=== PATIENT | female | born 1950 | race Caucasian/White ===

== ENCOUNTER → 2019-03-18 | Outpatient (CLI) | payer MEDICARE ==
--- NOTE | 2019-03-19 10:40 | MM ---
Reason for exam: screening (asymptomatic). Last mammogram was performed 2 years and 5 months ago. History: Patient is postmenopausal. Physical Findings: A clinical breast exam by your physician is recommended on an annual basis and results should be correlated with mammographic findings. MG Screening Mammo w CAD Bilateral CC and MLO view(s) were taken. Prior study comparison: October 07, 2016, bilateral MG screening mammo w CAD. There are scattered fibroglandular densities. Finding: There is an intermediate concern, suspicious 6 mm high density, lobulated mass located 11 cm from the nipple in the 3 o'clock position of the left breast consistent with possible mass. New finding since October 07, 2016. ASSESSMENT: Incomplete: need additional imaging evaluation, BI-RAD 0 RECOMMENDATION: Ultrasound of the left breast. [facility] will attempt to contact patient to return for ultrasound.
== END | disposition home or self-care (01) ==
LOC: RADMAMWWP 13:13
PROVIDERS: ATTEND Family Medicine
DX: Z12.31 Encounter for screening mammogram for malignant neoplasm of breast (principal)
CPT/HCPCS: 77067

== ENCOUNTER → 2019-04-09 | Outpatient (CLI) | payer MEDICARE ==
--- NOTE | 2019-04-12 07:51 | USB ---
Reason for exam: additional evaluation requested from abnormal screening. History: Patient is postmenopausal. Physical Findings: Nurse did not find any significant physical abnormalities on exam. US Breast Workup Limited LT Left limited breast ultrasound including focal area of concern, retroareolar and axilla demonstrates a 0.6 x 0.4 x 0.5cm hyperechoic lesion at 3 o'clock, probable lipoma or hemangioma. Mammographic finding stable compare to exam of 12/03/10. These results were verbally communicated with the patient and result sheet given to the patient on 04/09/19. ASSESSMENT: Benign, BI-RAD 2 RECOMMENDATION: Return to routine screening mammogram schedule for both breasts.
== END | disposition home or self-care (01) ==
LOC: RADUSWWP 15:44
PROVIDERS: ATTEND Family Medicine
DX: R92.8 Other abnormal and inconclusive findings on diagnostic imaging of breast (principal)

== ENCOUNTER → 2023-09-09 | Outpatient (CLI) | payer MEDICARE, OTHER ==
--- NOTE | 2023-09-09 08:11 | MM ---
Reason for Exam: Screening (asymptomatic). Last mammogram was performed 4 year(s) and 6 month(s) ago. Patient History: Menarche at age 14. First Full-Term at age 27. Postmenopausal. Risk Values: Merry 5 year model risk: 1.9%. NCI Lifetime model risk: 5.6%. Prior Study Comparison: 10/20/2014 Bilateral Screening Mammogram, [facility]. 10/07/2016 Bilateral Screening Mammogram, [facility]. 03/18/2019 Bilateral Screening Mammogram, [facility]. Tissue Density: There are scattered fibroglandular densities. Findings: Analyzed By CAD. There is no suspicious group of microcalcifications or new suspicious mass in either breast. Benign calcifications within both breasts. Chronic nodularity within the left breast. Overall Assessment: Benign, BI-RAD 2 Management: Screening Mammogram of both breasts in 1 year. A clinical breast exam by your physician is recommended on an annual basis and results should be correlated with mammographic findings. Note on Merry scores and lifetime risk: 1. A Merry score greater than 3% is considered moderate risk. If this is the case, consider specialist referral to assess eligibility for a risk reducing agent. If overall lifetime risk for the development of breast cancer is 20% or higher, the patient may qualify for future screening with alternating mammogram and breast MRI. Electronically signed and approved by: Harman San D.O.
== END | disposition home or self-care (01) ==
LOC: RADMAMWWP 07:45
PROVIDERS: ATTEND Family Medicine
DX: Z12.31 Encounter for screening mammogram for malignant neoplasm of breast (principal); Z78.0 Asymptomatic menopausal state
CPT/HCPCS: 77063; 77067

== ENCOUNTER 2023-10-08 10:15 | Day surgery (SDC) | payer MEDICARE, OTHER ==
[~2023-10-08 10:15] MED LIST: LACTATED RINGERS 1,000 ML IV SCH; LIDOCAINE 1% (10MG/ML) FOR IV START INTRADERMA PRN
[2023-10-08 11:02] LABS: Glucose,Whole Blood 109 mg/dL (70-110)
[2023-10-08 11:05] VITALS: RESP 16; TEMP 96.8
[2023-10-08] MEDS ORDERED: PROPOFOL 10 MG/ML 20 ML VIAL IV ONE (11:35)
--- NOTE | 2023-10-08 11:51 | P.PCN ---
Date of Procedure: 10/08/23 Procedure(s) Performed: BRIEF HISTORY: Patient is a 72-year-old pleasant female scheduled for an elective colonoscopy as a part of screening for colon cancer. PROCEDURE PERFORMED: Colonoscopy with biopsy. PREOPERATIVE DIAGNOSIS: Screening for colon cancer.. IV sedation per Anesthesia. PROCEDURE: After informed consent was obtained, the patient, was brought into the endoscopy unit. IV sedation was administered by Anesthesia under continuous monitoring. Digital rectal examination was normal. Initially the Olympus CF-160 flexible video colonoscope was then inserted in the rectum, gradually advanced into the cecum without any difficulty. Careful examination was performed as the scope was gradually being withdrawn. Ileocecal valve and the appendiceal orifice were visualized and appeared normal. Prep was excellent. Mucosa of the cecum, ascending colon, transverse colon, descending colon, appeared normal. In the sigmoid there was a 4 mm polyp that was removed by cold biopsy. Scattered sigmoidal diverticulosis seen. Rest of the sigmoid colon, and rectum appeared normal. Retroflexion was performed in the rectum and no lesions were seen. The patient tolerated the procedure well. IMPRESSION: 4 mm; sigmoid polyp status post cold biopsy Scattered sigmoid diverticulosis RECOMMENDATIONS: Findings of this examination were discussed with the patient as well as a family. She was advised to follow with the biopsy results. If the biopsy results adenoma she can have a repeat colonoscopy in 5 years..
[2023-10-08 13:04] VITALS: BP 143/77; PULSE 71
== END 2023-10-08 12:38 | disposition home or self-care (01) ==
LOC: ORWHC2ENDO 10:15
PROVIDERS: ATTEND Internal Medicine Gastroenterology
DX: Z12.11 Encounter for screening for malignant neoplasm of colon (principal); K63.5 Polyp of colon; K57.30 Diverticulosis of large intestine without perforation or abscess without bleeding; I10 Essential (primary) hypertension; E78.5 Hyperlipidemia, unspecified; E11.9 Type 2 diabetes mellitus without complications; F41.9 Anxiety disorder, unspecified; Z79.84 Long term (current) use of oral hypoglycemic drugs; Z79.899 Other long term (current) drug therapy; Z90.49 Acquired absence of other specified parts of digestive tract
CPT/HCPCS: 88305; 45380; J2704

== ENCOUNTER → 2024-03-31 | Outpatient (CLI) | payer MEDICARE, OTHER ==
--- NOTE | 2024-03-31 10:30 | CA ---
Exercise Stress Test Report Name: Miriam López Exam Date: 03/31/2024 09:07 Exam Location: [place] Stress Ht (in): 64 Wt (lb): 180 BSA: 1.87 Ordering Phys: Gianni Lindsay DO Referring Phys: Diamond Joe [facility] Technologist: Arabella Mcnulty RDCS Age: 73 Gender: F : 1950 Procedure CPT: Indications: I51.9 HEART DISEASE, UNSPECIFIED ICD-10 Codes: Patient History: HTN, DM, CHOL ,FAMILY HX Medications: SEE LIST Meds past 24 hrs: Pretest Chest Pain: STRESS TEST Chacho Protocol Exercise Duration (min:sec): 06:[address] Depressions (mm): Angina Score: Aaron Score: Resting HR (bpm): 66 Peak HR (bpm): 136 Resting BP (mmHg): 158 / 78 Peak BP (mmHg): 237 / 73 MPHR: 149 Target HR: 127 % MPHR: 91 METS: 7.1 Total Dose: Peak Dose: Atropine: Double Product: 64920 BP Response: Stress Termination: Reached target heart rate Stress Symptoms: No chest pain or symptoms Stress Summary: ECG ANALYSIS Resting ECG: Normal sinus rhythm with left bundle branch block. Heart rate 65 bpm Stress ECG: ECG is nondiagnostic because of resting left bundle branch block CONCLUSIONS Fair exercise tolerance for age achieving 7.1 METS Hypertensive at baseline. Hypertensive response to treadmill exercise Normal clinical response to treadmill exercise no chest pain ECG is nondiagnostic because of resting left bundle branch block Consider Lexiscan nuclear stress test if clinical suspicion of angina due to CAD. Consider better blood pressure control Dr Nguyễn Bustos (Electronically Signed) Final Date: 31 Mar 2024 10:28
== END | disposition home or self-care (01) ==
LOC: RADNMMAIN 08:26
PROVIDERS: ATTEND Family Medicine
DX: I44.7 Left bundle-branch block, unspecified (principal); I51.9 Heart disease, unspecified
CPT/HCPCS: 93017

== ENCOUNTER → 2024-07-14 | Outpatient (CLI) | payer MEDICARE, OTHER ==
[2024-07-14 15:39] LABS: ALT 26 U/L (8-44); AST 23 U/L (13-35); Albumin 4.5 g/dL (3.8-4.9); Albumin/Globulin Ratio 1.55 Ratio (1.60-3.17); Alkaline Phosphatase 76 U/L (41-126); BUN/Creat Ratio 25.57 Ratio (12.00-20.00); Blood Urea Nitrogen 17.9 mg/dL (9.0-27.0); Carbon Dioxide 24.9 mmol/L (21.6-31.8); Chloride 99 mmol/L (96-109); Chol/HDL Ratio 2.73 Ratio; Globulin 2.9 g/dL (1.6-3.3); Glucose 124 mg/dL (70-110); LDL Cholesterol,Calculated 44.5 mg/dL (0.0-131.0); Potassium 4.6 mmol/L (3.5-5.5); Sodium 136 mmol/L (135-145); Total Bilirubin 0.4 mg/dL (0.3-1.2); Total Protein 7.4 g/dL (6.2-8.2)
== END | disposition home or self-care (01) ==
LOC: LABWHC1 11:07
PROVIDERS: ATTEND Internal Medicine Interventional Cardiology
DX: E78.2 Mixed hyperlipidemia (principal)
CPT/HCPCS: 36415; 80053; 80061

== ENCOUNTER → 2024-10-07 | Outpatient (CLI) | payer MEDICARE, OTHER ==
[2024-10-07 14:59] VITALS: BP 177/76; PULSE 72; RESP 16; TEMP 97.9
--- NOTE | 2024-10-07 15:13 | P.SLEEP ---
History of Present Illness DATE: 10/07/2024 CONSULTATION/NEW PATIENT EVALUATION HISTORY OF PRESENT ILLNESS/SLEEP-WAKE EVALUATION: 73-year-old lady had been e valuated in the sleep center for possible obstructive sleep apnea hypopnea syndrome. SLEEP SCHEDULE: Usually sleep schedule from midnight until 9 AM, presently because she has to take care about grandchildren's she goes to bed around 10:30 and gets up at 6 AM. FALLING ASLEEP: Patient does have difficulties with falling asleep, although no TV in bedroom. DURING SLEEP: Patient usually sleeps on the side position with snoring and witnessed episodes of stop breathing during the sleep by her patient wakes up from sleep several times with episodes of sweating nocturia. No history of hypnogogical hallucinations, sleep paralysis, or cataplexy. DURING THE DAY/WAKE STATE: In the morning patient wake up tired, has difficulties to pay attention, has problems with memory, concentration and anxiety.. Proctor sleepiness scale is increased to 13. Patient may take several naps during the day. PAST MEDICAL HISTORY: Hypertension, hyperlipidemia, diabetes mellitus, anxiety. PAST SURGICAL HISTORY: Appendectomy, left wrist surgery. MEDICATIONS: Please see below. SOCIAL HISTORY: Please see below. FAMILY HISTORY: Please see below. REVIEW OF SYSTEMS: Snoring, awakenings from sleep, sleepiness during the day. No fevers. No double vision. No recent chest pain. No shortness of breath. No abdominal pain. No bleeding episodes. No blood in urine. No seizure episodes. PHYSICAL EXAMINATION: GENERAL: A pleasant patient without any distress. VITAL SIGNS: Please see below weight 186 pounds, BMI 32.4. HEENT: PERRLA, EOMI. Evaluation of oropharynx showed tongue protrudes midline, low position of soft palate Mallampati 4. NECK: Supple. No JVD. Thyroid is not palpable. 16 inches in circumference. LUNGS: Clear to percussion and to auscultation. Good air exchange. No wheezing o r rhonchi. HEART: S1, S2 regular. No murmurs, gallops or rubs. ABDOMEN: Soft and nontender. Bowel sounds are present. No organomegaly appreciated. EXTREMITIES: No clubbing or cyanosis. WHOLESALE PARTS SALESPERSON: Awake, alert, and oriented x3. Cranial nerves 2 to 7 intact. There is no fasciculation or atrophy noted. No focal deficits observed. ASSESSMENT: 1. Snoring, witnessed episodes of stop breathing during the sleep, extremely low position of soft palate Mallampati 4, wide neck 16 inches in circumference, episodes of sleepiness during the day patient takes several naps. Obstructive sleep apnea hypopnea syndrome. 2. Mild obesity, BMI 32.4. 3. Hypertension. 4. Diabetes mellitus. 5 hyperlipidemia. 6 . Anxiety. 7. Status post left wrist surgery. 8. Status post appendectomy. PLAN: 1. Polysomnography for evaluation of patient's breathing during sleep. 2. Following plan after reading sleep study. 3. Preferable position during sleep on the side. 4. No driving if patient feels any sleepiness. Patient is aware of civil and criminal liability for unsafe driving. 5. Sleep hygiene with regular sleep time for at least 7.5-8 hours. 6. Watching and losing weight. Thank you very much for referring this patient for consultation. Sincerely, Alexandru Riggs MD, PhD, FAASM. Diplomat of [place] [employer], Sleep Medicine Board by [place] [employer] [place] [employer] Detective [employer] [facility] [place] cc: Gianni Lindsay DO, Samman, Bashar MD Past Medical History Past Medical History: Diabetes Mellitus, Hyperlipidemia, Hypertension Additional Past Medical History / Comment(s): skin cancer right shoulder size of pencil eraser head to be removed History of Any Multi-Drug Resistant Organisms: None Reported Past Surgical History: Appendectomy, Orthopedic Surgery Additional Past Surgical History / Comment(s): colonoscopy, skin biopsies & excision skin cancer left wrist Past Anesthesia/Blood Transfusion Reactions: No Reported Reaction Past Psychological History: Anxiety Additional Psychological History / Comment(s): started on antidepressant - 4 grandchildren living w/ her Smoking Status: Never smoker Past Alcohol Use History: None Reported Past Drug Use History: None Reported - Past Family History Father Family Medical History: Cancer Additional Family Medical History / Comment(s): liver ca, snoring Mother Family Medical History: CVA/TIA Daughter(s) Family Medical History: Thyroid Disorder Medications and Allergies Home Medications Medication Instructions Recorded Confirmed Type Atorvastatin [Lipitor] 40 mg PO HS 10/07/23 10/07/24 History Escitalopram [Lexapro] 10 mg PO HS 10/07/23 10/07/24 History Losartan Potassium 50 mg PO QAM 10/07/23 10/07/24 History Pioglitazone HCl 15 mg PO QAM 10/07/23 10/07/24 History Semaglutide [Ozempic] 2 mg SQ Q7D 10/07/23 10/07/24 History metFORMIN HCL ER [Glucophage XR] 1,000 mg PO BID 10/07/23 10/07/24 History Allergies Allergy/AdvReac Type Severity Reaction Status Date / Time No Known Allergies Allergy Verified 10/08/23 10:49 Physical Exam Vitals: Vital Signs Temp Pulse Resp BP Pulse Ox 10/07/24 14:57 97.9 F 72 16 177/76 96 Intake and Output 10/07/24 10/07/24 10/07/24 06:59 14:59 22:59 Other: Weight 84.368 kg Sleep Note - Sleep Data ESS Total: 13 - Sleep Note Sleep Note: Temperature: 97.9 F Pulse Rate: 72 Respiratory Rate: 16 Blood Pressure: 177/76 SpO2: 96 Height: 5 ft 3.5 in Weight: 84.368 kg BMI: Neck Circumference: 16
== END ==
LOC: 3 N SLEEP 14:06
PROVIDERS: ATTEND Internal Medicine
DX: G47.33 Obstructive sleep apnea (adult) (pediatric) (principal); E66.9 Obesity, unspecified; I10 Essential (primary) hypertension; E11.9 Type 2 diabetes mellitus without complications; E78.5 Hyperlipidemia, unspecified; F41.9 Anxiety disorder, unspecified; Z98.890 Other specified postprocedural states; Z90.89 Acquired absence of other organs; Z68.32 Body mass index [BMI] 32.0-32.9, adult; Z79.85 Long-term (current) use of injectable non-insulin antidiabetic drugs; Z79.84 Long term (current) use of oral hypoglycemic drugs; Z79.899 Other long term (current) drug therapy
CPT/HCPCS: 99211

== ENCOUNTER 2024-10-25 19:45 | Outpatient (CLI) | payer MEDICARE, OTHER ==
--- NOTE | 2024-10-28 11:31 | P.PCN ---
Description of Procedure: POLYSOMNOGRAPHY REPORT PROCEDURE(S)/DATE(S): Polysomnography 10/25/2024 CLINICAL: Patient has been seen in the sleep center for evaluation of obstructive sleep apnea-hypopnea syndrome. Please see my consultation. Sleep study has been done for evaluation of patient breathing during the sleep. PROCEDURE: The standard montage for clinical polysomnography included the electroencephalogram, the electrooculogram, the mentalis surface electromyography and Lead II cardiography. The respiratory battery consisted of measurements of nasal/buccal air flow, pressure transducer measurements from nose, thoracic and/or abdominal effort and intercostal surface electromyography. Video monitoring has been done to check for any parasomnia events. Nocturnal oxyhemoglobin saturations were obtained by finger oximetry. Step-coleman titration with positive airway pressure was utilized to control the respiratory events, if necessary. RESULTS: During the diagnostic sleep study sleep efficiency was decreased to 82.5%. Latency to sleep onset was prolonged to 34.5 min. Sleep architecture showed stage NI was significantly increased to 24.9%, Delta sleep was absent 0%, REM sleep was normal 22.3%. Respiratory channel showed 0 obstructive apneas, 0 mixed apneas, 0 central apneas, 148 hypopneas with lowest oxygen level 84%. Total apnea hypopnea index was 28.9 using 4% oxygen desaturation criteria and 30.9 using 3% oxygen desaturation criteria.. Heart rate was in the range between 64 and 70, average 67. EMG showed 5.7 periodic limb movements per hour with 0 micro-arousals per hour. IMPRESSIONS: 1. Moderate to severe obstructive sleep apnea hypopnea syndrome. 2. No significant periodic limb movements have been documented. Please see other impressions from consultation PLAN: 1. The patient will have PAP titration for correction of respiratory abnormalities during the sleep. 2. Losing weight program. 3. Sleep hygiene with regular time in bed for at least 7-1/2 hours. 4. No driving if feeling sleepiness. 5. Please check iron profile including ferritin level. Low level of iron may increase the risk for periodic limb movements. Thank you very much for allowing me to participate in the management of your patient. Sincerely, Alexandru Riggs MD, PhD, FAASM. Diplomat of [place] [employer], Sleep Medicine Board by [place] [employer] Project Control Officer [facility] [place] cc: Gianni Lindsay DO
== END 2024-10-26 05:45 | disposition home or self-care (01) ==
LOC: 3 N SLEEP 19:45
PROVIDERS: ATTEND Internal Medicine
DX: G47.33 Obstructive sleep apnea (adult) (pediatric) (principal)
CPT/HCPCS: 95810

== ENCOUNTER → 2025-02-24 | Outpatient (CLI) | payer MEDICARE, OTHER ==
[2025-02-24 15:43] LABS: ALT 26 U/L (8-44); AST 20 U/L (13-35); Albumin/Globulin Ratio 1.54 Ratio (1.60-3.17); Alkaline Phosphatase 72 U/L (41-126); Blood Urea Nitrogen 17.5 mg/dL (9.0-27.0); Calcium 9.5 mg/dL (8.7-10.3); Carbon Dioxide 23.3 mmol/L (21.6-31.8); Chloride 106 mmol/L (96-109); Chol/HDL Ratio 2.99 Ratio; Globulin 2.6 g/dL (1.6-3.3); Glucose 138 mg/dL (70-110); LDL Cholesterol,Calculated 65.7 mg/dL (0.0-131.0); Potassium 5.6 mmol/L (3.5-5.5); Sodium 141 mmol/L (135-145); Total Bilirubin 0.4 mg/dL (0.3-1.2); Total Protein 6.6 g/dL (6.2-8.2)
== END | disposition home or self-care (01) ==
LOC: LABWHC1 08:27
PROVIDERS: ATTEND Internal Medicine Interventional Cardiology
DX: E78.2 Mixed hyperlipidemia (principal)
CPT/HCPCS: 36415; 80053; 80061

== ENCOUNTER → 2025-03-16 | Outpatient (CLI) | payer MEDICARE, OTHER | END | disposition home or self-care (01) | LOC: LABWHC1 10:20 | PROVIDERS: ATTEND Internal Medicine Interventional Cardiology | DX: E87.5 Hyperkalemia (principal) | CPT/HCPCS: 36415; 84132 ==

== ENCOUNTER → 2025-03-24 | Outpatient (CLI) | payer MEDICARE, OTHER ==
[2025-03-24 11:37] VITALS: BP 147/77; PULSE 75; RESP 12; TEMP 98.1
--- NOTE | 2025-03-24 12:29 | P.PROGSL ---
Subjective DATE: 03/24/2025 FOLLOW UP VISIT. Patient with obstructive sleep apnea hypopnea syndrome return to sleep center for follow-up visit. Recently patient had sleep study which documented obstructive sleep apnea hypopnea syndrome. Patient was initiated on PAP therapy and today is first visit after treatment was started. I explained results of sleep studies to patient in details. Patient was able to use PAP equipment every night for the whole night. Patient feels better while using show CPAP equipment The patient does not have significant problems with the mask, PAP pressure and humidification. [place] sleepiness scale is 7, which is in the normal range. I checked information from PAP unit. PAP unit pressure 5-12, average 11.8 cm H2O. Usage is 100% for more then 4 hours, average 8.25 hours per night. Leak is 6.0 l/m, which is in acceptable range. Apnea Hypopnea Index is 2.5, which is normal. MEDICATIONS: Please see below During physical exam: GENERAL: A pleasant patient without any distress. VITAL SIGNS: Please see below, weight 194 pounds, BMI 33.8. HEENT: PERRLA, EOMI.low position of soft palate, Mallapati 4 . NECK: Supple. No JVD. LUNGS: Clear to percussion and to auscultation. Good air exchange. No wheezing or rhonchi. HEART: S1, S2 regular. ABDOMEN: Soft and nontender.[] EXTREMITIES: No clubbing or cyanosis. QUALITY ASSOCIATE: Awake, alert, and oriented x3. No focal deficit. Impressions: 1. Obstructive sleep apnea-hypopnea syndrome. Patient demonstrated great compliance with treatment, benefiting from treatment. 2. Mild obesity, BMI 33.8. 3. Hypertension. 4. Diabetes mellitus. 5. Hyperlipidemia. 6. Anxiety. 7. Status post left wrist surgery. 8. Status post appendectomy. Plan: 1. Continue using PAP equipment every night for the whole night. 2. To change air filter at least 1-2 times per month. 3. PAP unit should stay lower then position of the head. 4. Advised patient to remove all remaining water from humidifier canister daily and make it dry after each usage. Refill canister with fresh distilled water before each usage. 5. Sleep hygiene with regular time in bed for at least 8 hours. 6. Precautions related to driving. No driving if feel any sleepiness. 7. I will maintain prescription for PAP supplies including mask, tube, filters. 8. Follow up visit in 8 months or earlier if patient has any problems. 9. Watching and losing weight. Thank you very much for allowing me to participate in the management of your patient. Alexandru Riggs MD, PhD, FAASM. Diplomat of [place] [employer], Sleep Medicine Board by [place] [employer] [facility] [place] Objective - Vital Signs Vital Signs: Vital Signs Temp 98.1 F 03/24/25 11:36 Pulse 75 03/24/25 11:36 Resp 12 03/24/25 11:36 BP 147/77 03/24/25 11:36 Pulse Ox 97 03/24/25 11:36 FiO2 Intake & Output 03/23/25 03/24/25 03/24/25 18:59 06:59 18:59 Weight 87.997 kg Home Medications: Home Medications Medication Instructions Recorded Confirmed Type Atorvastatin [Lipitor] 40 mg PO HS 10/07/23 10/07/24 History Escitalopram [Lexapro] 10 mg PO HS 10/07/23 10/07/24 History Losartan Potassium 50 mg PO QAM 10/07/23 10/07/24 History Pioglitazone HCl 15 mg PO QAM 10/07/23 10/07/24 History Semaglutide [Ozempic] 2 mg SQ Q7D 10/07/23 10/07/24 History metFORMIN HCL ER [Glucophage XR] 1,000 mg PO BID 10/07/23 10/07/24 History
== END ==
LOC: 3 N SLEEP 11:28
PROVIDERS: ATTEND Internal Medicine
DX: G47.33 Obstructive sleep apnea (adult) (pediatric) (principal); E66.9 Obesity, unspecified; I10 Essential (primary) hypertension; E78.5 Hyperlipidemia, unspecified; E11.9 Type 2 diabetes mellitus without complications; K21.9 Gastro-esophageal reflux disease without esophagitis; Z98.890 Other specified postprocedural states; Z68.33 Body mass index [BMI] 33.0-33.9, adult; Z99.89 Dependence on other enabling machines and devices; Z90.89 Acquired absence of other organs
CPT/HCPCS: 99212